=== PATIENT | male | born 1985 | race Caucasian/White ===

== ENCOUNTER 2017-02-12 22:17 | Emergency (ER) | payer OTHER ==
[~2017-02-12] VITALS: Ht 165.1 cm; Wt 81.6 kg
[~2017-02-12 22:17] MED LIST: KEFLEX500 M1 PO; ZYRTEC10 M6
--- NOTE | 2017-02-13 00:58 | ED INFLUENZA/URI COMPLAINT ---
History of Present Illness General Chief Complaint: Ear Complaints Stated Complaint: ?EAR INFECTION Source: patient Exam Limitations: no limitations Vital Signs & Intake/Output Vital Signs & Intake/Output Vital Signs Date Time Temp Pulse Resp B/P B/P Pulse O2 O2 Flow FiO2 Mean Ox Delivery Rate 02/12 2229 99.0 86 18 120/72 96 Room Air ED Intake and Output 02/13 0000 02/12 1200 Intake Total Output Total Balance Patient 180 lb Weight Weight Reported by Patient Measurement Method Allergies Coded Allergies: cat dander (Mild, SINUS/ITCHING 02/12/17) Reconcile Medications Amoxicillin/Potassium Clav (Augmentin 875-125 Tablet) 875 MG-125 MG TABLET 1 TAB PO BID ear infection Cephalexin (Keflex) 500 MG CAPSULE 1 CAP PO TID possible wound infection Cetirizine HCl (Zyrtec) 10 MG CAPSULE ALLERGY TO CAT/DOG DANDER (Reported) Ibuprofen 800 MG TABLET 1 TAB PO TID PRN pain Triage Note: TRIAGE: PATIENT TO ER FROM HOME W/ "R SIDE EAR FEELS BLOCKED, MAYBE INFECTED." ONSET SX EARLIER TODAY. PAIN TO R EAR 02/15. Triage Nurses Notes Reviewed? yes Onset: Gradual Duration: day(s): Timing: recent history Severity: moderate Prior Episodes/Possible Cause: no prior episodes Modifying Factors: Improves With: rest. Associated Symptoms: right ear pain HPI: 31 yo gentleman presents with right ear pain x 1 day. He notes throbbing pain and ache in the right ear, no fever, chills, cough, wheeze. He is otherwise well. Past History Travel History Traveled to [place] past 21 day No Medical History Any Pertinent Medical History? see below for history Neurological: NONE EENT: NONE Cardiovascular: NONE Respiratory: asthma Gastrointestinal: GERD Hepatic: NONE Renal: NONE Musculoskeletal: NONE Psychiatric: NONE Endocrine: NONE Blood Disorders: NONE Cancer(s): NONE MANAGED CARE PROVIDER/Reproductive: NONE Other Medical Hx: seasonal allergies Surgical History Surgical History: none Psychosocial History What is your primary language [place] Tobacco Use: Never used Family History Hx Contributory? No Review of Systems Review of Systems Constitutional: Reports: no symptoms. EENTM: Reports: no symptoms. Respiratory: Reports: no symptoms. Cardiovascular: Reports: no symptoms. GI: Reports: no symptoms. Genitourinary: Reports: no symptoms. Musculoskeletal: Reports: no symptoms. Skin: Reports: no symptoms. Neurological/Psychological: Reports: no symptoms. Hematologic/Endocrine: Reports: no symptoms. Immunologic/Allergic: Reports: no symptoms. All Other Systems: Reviewed and Negative Physical Exam Physical Exam General Appearance: well developed/nourished, mild distress Head: atraumatic, normal appearance Eyes: Bilateral: normal appearance. Ears, Nose, Throat: right TM with erythema, slight bulging. Neck: normal inspection, supple, full range of motion Respiratory: normal breath sounds, chest non-tender, no respiratory distress, quiet respiration, lungs clear Cardiovascular: regular rate/rhythm Gastrointestinal: normal bowel sounds, soft, non-tender, no organomegaly Back: normal inspection Extremities: normal inspection, normal capillary refill, normal range of motion, no edema Neurologic/Psych: no motor/sensory deficits, awake, alert, oriented x 3 Skin: intact, normal color, warm/dry Core Measures Severe Sepsis Present: No Septic Shock Present: No Progress Differential Diagnosis: otitis, pharyngitis, sinusitis Plan of Care: Current Medications Sig/Ev Start time Last Medication Dose Stop Time Status Admin Amoxicillin/ 1,000 MG ONCE ONE 02/13 130 UNVr Clavulanate Potassium 02/13 131 (Augmentin) Ibuprofen 800 MG ONCE ONE 02/13 130 UNVr (Motrin) 02/13 131 Initial ED EKG: none Departure Departure Disposition: HOME OR SELF CARE Condition: Stable Clinical Impression Primary Impression: Right otitis media Referrals: PATIENT HAS NO PRIMARY CARE DR (PCP/Family) Departure Forms: Customer Survey General Discharge Information Prescriptions: Current Visit Scripts Amoxicillin/Potassium Clav (Augmentin 875-125 Tablet) 1 TAB PO BID #14 TAB Ibuprofen 1 TAB PO TID PRN pain #30 TAB
[2017-02-13] MEDS ORDERED: IBUPROFEN800 M1 PO (01:18)
[2017-02-13] MEDS ORDERED: AUGMENTIN 875-1 EACH PO (01:18)
[2017-02-13 01:52] VITALS: BP 118/71
== END 2017-02-13 01:52 ==
LOC: ERH 22:17
DX: H66.91 Otitis media, unspecified, right ear (principal)
CPT/HCPCS: J3490